=== PATIENT | female | born 1970 ===

== ENCOUNTER 2017-10-28 14:25 | Emergency (ER) | payer MEDICARE ==
[2017-10-28 14:43] VITALS: BMI 24.8
--- NOTE | 2017-10-28 15:32 | C.PDOC ---
History Of Present Illness Patient is a 47 y/o female who presents to the ED for evaluation of epistaxis. Patient reports to have a Hx of epistaxis for over a year and was seen by Dr. Coppola on 10/22 for cauterization of one naris. Patient reports bleeding completely stopped until today out of both nares, prompting visit. Patient is currently not actively bleeding in ED. Admits to pain with inspiration through the nose and notes headache. Patient has no other physical complaints at this time. Time Seen by Provider: 10/28/17 14:44 Chief Complaint (Nursing): ENT Problem History Per: Patient History/Exam Limitations: None Onset/Duration Of Symptoms: Hrs, Sudden Onset Current Symptoms Are (Timing): Still Present Symptoms Have Been: Continuous Past Medical History Reviewed: Historical Data, Nursing Documentation, Vital Signs Vital Signs: Last Vital Signs Temp 97.9 F 10/28/17 14:43 Pulse 77 10/28/17 14:43 Resp 17 10/28/17 14:43 BP 122/82 10/28/17 14:43 Pulse Ox 100 10/28/17 15:37 - Medical History PMH: Depression Surgical History: Appendectomy Other Surgeries: hysterectomy, bladder lift - [facility] BILAT ENDOSC DIVIS TUBE (08/29/00) LAPAROSCOP APPENDECTOMY (07/15/99) LAPAROSCOP LYSIS-PERITONEAL ADHES (07/15/99) OTH LAPAROSCOP LOCAL EXCIS/DESTRUCT OVARY (07/15/99) REMOVAL IUD (08/29/00) Family History: States: No Known Family Hx - Social History Hx Tobacco Use: No Hx Alcohol Use: Yes Hx Substance Use: No - Immunization History Hx Tetanus Toxoid Vaccination: No Hx Influenza Vaccination: No Hx Pneumococcal Vaccination: No Review Of Systems ENT: Positive for: Nose Discharge (epistaxis) Respiratory: Positive for: Other (pain with inspiration through the nose) Neurological: Positive for: Headache Physical Exam - Physical Exam Appears: Other (anxious) Head: Atraumatic, Normacephalic Nose: No Epistaxis (no active bleeding), Other (blood mainly out left naris with mucus; minimal blood on right naris) Oral Mucosa: Moist Neurological/Psych: Oriented x3, Normal Speech, Normal Cognition ED Course And Treatment O2 Sat by Pulse Oximetry: 100 Medical Decision Making Medical Decision Making: Spoke with Dr. Coppola, recommend frontal packing. Frontal packing applied, patient tolerated well. Patient requesting packing be removed at this time. Disposition Counseled Patient/Family Regarding: Diagnosis, Need For Followup - Disposition Referrals: Wade Coppola MD [Staff Provider] - Disposition: HOME/ ROUTINE Disposition Time: 17:06 Condition: STABLE Forms: [facility] (Iraqi), General Discharge Instructions, Work Excuse - POA Present On Arrival: None - Clinical Impression Clinical Impression: Epistaxis - Scribe Statement The provider has reviewed the documentation as recorded by the Scribe Kaci Mariscal All medical record entries made by the Scribe were at my direction and personally dictated by me. I have reviewed the chart and agree that the record accurately reflects my personal performance of the history, physical exam, medical decision making, and the department course for this patient. I have also personally directed, reviewed, and agree with the discharge instructions and disposition.
[2017-10-28] MEDS ORDERED: Bacitracin 500 Units/gm Oint Foilpak UD TOP ONE (15:56)
[2017-10-28] MEDS ORDERED: Bacitracin 500 Units/gm Oint Foilpak UD ONE (15:59)
[2017-10-28 17:30] VITALS: BP 131/77; PULSE 75; RESP 20; TEMP 98.2; O2SAT 99
== END 2017-10-28 17:15 | disposition home or self-care (01) ==
LOC: C.ER 14:25
DX: R04.0 Epistaxis (principal)